=== PATIENT | female | born 1945 | race Caucasian/White ===

== ENCOUNTER 2019-05-20 08:46 | Emergency (ER) | payer MEDICARE, OTHER ==
[2019-05-20 09:07] VITALS: BP 160/88
--- NOTE | 2019-05-20 09:27 | UC ---
Knee Pain HPI - HPI Summary HPI Summary: right knee pain x 2 weeks pain is 6 out 10 , worse with walking/ stairs , better with rest / elevation no known injury , no swelling, no redness has been having chronic pain of her both knee , no right knee is getting worse - History of Current Complaint Chief Complaint: UCLowerExtremity Stated Complaint: RIGHT LEG/FOOT PAIN Time Seen by Provider: 05/20/19 09:07 Hx Obtained From: Patient Onset/Duration: Gradual Onset, Lasting Weeks - 2, Still Present Severity Initially: Moderate Severity Currently: Moderate Pain Intensity: 6 Character: Aching Aggravating Factor(s): Movement, Weight Bearing, Prolonged Standing, Stairs Alleviating Factor(s): Rest Associated Signs And Symptoms: Negative: Swelling, Redness, Bruising, Fever, Weakness, Numbness, Tingling Able to Bear Weight: Yes - Allergies/Home Medications Allergies/Adverse Reactions: Allergies Allergy/AdvReac Type Severity Reaction Status Date / Time Adhesive Tape Allergy Rash Verified 05/20/19 09:13 ibuprofen Allergy See Comment Verified 05/20/19 09:13 lactose Allergy Hives Verified 05/20/19 09:13 latex Allergy Rash Verified 05/20/19 09:13 strawberry Allergy Hives Verified 05/20/19 09:13 all tape Allergy Rash Uncoded 05/20/19 09:13 Home Medications: Home Medications Azelastine/Fluticasone KINZA(NF [Dymista(NF)] 1 spray BOTH NARES DAILY 05/20/19 [ History Confirmed 05/20/19] Losartan/Hydrochlorothiazide [Losartan Potassium/Hydroc 100-25 mg] 1 tab PO DAILY 05/20/19 [History Confirmed 05/20/19] PMH/Surg Hx/FS Hx/Imm Hx Cardiovascular History: Hypertension - Surgical History Surgical History: Yes Surgery Procedure, Year, and Place: PARTIAL HYSTERECTOMY , GALLBLADDER , APPENDECTOMY, BLADDER REPAIR , - Family History Known Family History: Positive: Hypertension - Social History Alcohol Use: Rare Substance Use Type: None Smoking Status (MU): Never Smoked Tobacco - Immunization History Most Recent Influenza Vaccination: 2009 Most Recent Tetanus Shot: up to date Most Recent Pneumonia Vaccination: never had Review of Systems All Other Systems Reviewed And Are Negative: Yes Is Patient Immunocompromised?: No Physical Exam Triage Information Reviewed: Yes Appearance: Well-Appearing, Obese Vital Signs: Initial Vital Signs Temp 97.3 F 05/20/19 08:56 Pulse 63 05/20/19 08:56 Resp 14 05/20/19 08:56 BP 160/88 05/20/19 08:56 Pulse Ox 100 05/20/19 08:56 Vital Signs Reviewed: Yes Eyes: Positive: Conjunctiva Clear ENT: Positive: Normal ENT inspection, Hearing grossly normal Neck exam: Normal Neck: Positive: Supple, Nontender Respiratory: Positive: Chest non-tender, Lungs clear, Normal breath sounds Cardiovascular: Positive: RRR, No Murmur, Pulses Normal Musculoskeletal: Positive: Other: - right knee: no swelling, no effusion , pain with flexion and extension , diffuse tenderness stable ligaments / gaurding with [facility] - Radiology No standard instances Radiology Interpretation Completed By: Radiologist Summary of Radiographic Findings: xray report right knee: INDICATION: Right knee pain. TECHNIQUE: 4 views of the right knee were obtained. FINDINGS: The soft tissues are unremarkable. The bones are osteopenic. No fracture is identified. Anatomic alignment is maintained. The joint spaces are preserved. IMPRESSION: OSTEOPENIA WITH NO FRACTURE IDENTIFIED. Knee Pain Course/Dx - Differential Dx/Diagnosis Provider Diagnosis: Right knee pain Discharge ED - Sign-Out/Discharge Documenting (check all that apply): Patient Departure All imaging exams completed and their final reports reviewed: Yes - Discharge Plan Condition: Stable Disposition: HOME Patient Education Materials: Knee Pain (ED) Referrals: Rashid Solis MD [Primary Care Provider] - Jewel Lopes MD [Medical Doctor] - As Soon As Possible - Billing Disposition and Condition Condition: STABLE Disposition: Home
== END 2019-05-20 10:30 | disposition home or self-care (01) ==
LOC: UCCORT 08:46
DX: M25.561 Pain in right knee (principal); M85.871 Other specified disorders of bone density and structure, right ankle and foot; E66.9 Obesity, unspecified; I10 Essential (primary) hypertension; Z88.8 Allergy status to other drugs, medicaments and biological substances; Z91.011 Allergy to milk products; Z91.040 Latex allergy status; Z91.018 Allergy to other foods; Z91.09 Other allergy status, other than to drugs and biological substances; Z79.899 Other long term (current) drug therapy
CPT/HCPCS: 99211; G0463

== ENCOUNTER 2020-05-17 06:52 | Observation (INO) ==
[~2020-05-17 06:52] MED LIST: Buffered Lidocaine 1% SYRIN 1 ml INTRADERM ONE; Lactated Ringers 1000 ml BAG 1,000 ML IV SCH
[2020-05-17] MEDS ORDERED: Buffered Lidocaine 1% SYRIN 1 ml INTRADERM ONE (07:16)
[2020-05-17] MEDS ORDERED: ceFAZolin 2 GM PREMIX 2 GM/50 ML BAG ONE (07:16)
[2020-05-17] MEDS ORDERED: Glycopyrrolate IV 0.2 MG/ML 1 ML VIAL ONE (07:20)
[2020-05-17] MEDS ORDERED: Propofol 10 MG/ML 20 ML BTL ONE (07:20)
[2020-05-17] MEDS ORDERED: fentaNYL 100 mcg/2 ml 50 MCG/ML VIAL ONE ×2 (07:20→08:48)
[2020-05-17] MEDS ORDERED: Lidocaine 2% PF 5 ML VIAL ONE (07:21)
[2020-05-17] MEDS ORDERED: Midazolam 2 mg/2 ml VIAL 1 mg/ml 2 ml VIAL (2 mg) ONE (07:49)
[2020-05-17] MEDS ORDERED: ROPIVACAINE 5 MG/ML 30 ML BTL (0.5%) ONE ×2 (07:49→08:06)
[2020-05-17] MEDS ORDERED: Dexamethasone IV 4 MG/ML VIAL 1 ml VIAL ONE (07:50)
[2020-05-17] MEDS ORDERED: Naloxone 0.4 mg VIAL 0.4 mg/ml 1 ml VIAL IV PRN (09:22)
[2020-05-17] MEDS ORDERED: diPHENhydraMINE IV 50 MG/ML 1 ml VIAL (BENADRYL) IV PRN ×2 (09:22→09:49)
[2020-05-17] MEDS ORDERED: fentaNYL 100 mcg/2 ml 50 MCG/ML VIAL IV PRN (09:22)
[2020-05-17] MEDS ORDERED: EPHEDrine (Pressors) 50 MG/ML VIAL ONE (09:28)
[2020-05-17] MEDS ORDERED: diPHENhydraMINE 25 mg TAB PO PRN (09:49)
[2020-05-17] MEDS ORDERED: Magnesium Hydroxide LIQ 30 ML UDC PO PRN (09:49)
[2020-05-17] MEDS ORDERED: Ondansetron 4 mg VIAL 2 MG/ML 2 ml VIAL IV PRN (09:49)
[2020-05-17] MEDS ORDERED: Morphine 2 MG/ML SYRINGE IV PRN (09:49)
[2020-05-17] MEDS ORDERED: Ondansetron ODT 4 mg TAB 4 MG TAB PO PRN (09:49)
[2020-05-17] MEDS ORDERED: Lactulose 30 ml UDC PO PRN (09:49)
[2020-05-17] MEDS ORDERED: ceFAZolin 1 GM ADVAN 1 GM in NS 0.9% 50 ML 50 ML IVPB SCH (10:00)
[2020-05-17] MEDS ORDERED: Prochlorperazine 5 mg/ml 2 ml VIAL (10 mg) IV PRN (10:00)
[2020-05-17] MEDS: Lactated Ringers 1000 ml BAG 1,000 ML IV SCH ×2 (12:35→22:27)
[2020-05-17] MEDS: ceFAZolin 1 GM ADVAN 1 GM in NS 0.9% 50 ML 50 ML IVPB SCH (17:26)
[2020-05-17] MEDS: Magnesium Hydroxide LIQ 30 ML UDC PO SCH (21:02)
[2020-05-18] MEDS: ceFAZolin 1 GM ADVAN 1 GM in NS 0.9% 50 ML 50 ML IVPB SCH ×2 (00:21→08:54)
[2020-05-18 05:59] LABS: Hematocrit 33 % (35-47); Hemoglobin 10.9 g/dL (12.0-16.0); Mean Platelet Volume 9.2 fL (7.4-10.4); Platelet Count 272 10^3/uL (150-450)
[2020-05-18 06:22] LABS: BUN/Creatinine Ratio 23.8 (8-20); Calcium 8.6 mg/dL (8.6-10.3); EGFR African American 80.2 (>60); EGFR Non-African American 66.3 (>60); Potassium 4.1 mmol/L (3.5-5.0)
[2020-05-18] MEDS ORDERED: Vitamin THERAPEUTIC TAB PO SCH (09:00)
[2020-05-18] MEDS ORDERED: CMCS: Estradiol 1 mg TAB (NF) PO SCH (09:00)
[2020-05-18] MEDS ORDERED: Losartan/HCTZ 100/25 TAB (NF) PO SCH (09:00)
[2020-05-18] MEDS: Magnesium Hydroxide LIQ 30 ML UDC PO SCH (09:58)
[2020-05-18 11:41] VITALS: BP 146/62
== END 2020-05-18 14:10 | disposition home or self-care (01) ==
LOC: SSU 06:52 → OR 06:52
PROVIDERS: ADMIT Orthopaedic Surgery Adult Reconstructive Orthopaedic Surgery; ATTEND Orthopaedic Surgery Adult Reconstructive Orthopaedic Surgery